=== PATIENT | female | born 1975 | race Caucasian/White ===

== ENCOUNTER 2018-03-29 07:26 | Emergency (ER) | payer SELFPAY ==
[2018-03-29 07:26] VITALS: BP 132/85; PULSE 96; RESP 18; TEMP 36.6; O2SAT 99; BMI 26.6
--- NOTE | 2018-03-29 07:38 | ED.VISSUMM ---
- ER Visit Summary Date of Service: 03/29/18 Chief Complaint: Headache dizziness cough. History of Present Illness: The patient is a 42 F with 3 day history of cough, nonproductive. She has sinus tenderness, rhinorrhea and she has had some muscle aches. No shortness of breath or chest pain. No fever. Physical Examination: She has swollen beefy red nasal turbinates, bulging TMs bilaterally. She has postnasal drip. She has frontal sinus tenderness. Her lungs are clear, abdomen is soft and nontender no rash normal exam otherwise. Emergency Department Course and Treatment: Patient will be treated for sinusitis with azithromycin. She is told that if she worsens, gets shortness of breath or any symptoms she needs to return. Impression: Sinusitis Sinus headache This note was generated with [employer] dictation software. It may contain incorrect words, spelling, and punctuation that were not noted in review of the chart prior to signing ED Disposition - Plan for ED Patient: Disposition: Home or Assisted Living Chief Complaint: General Illness Instructions: Sinus Headaches Prescriptions: Azithromycin [Zithromax] 250 mg PO DAILY 5 Days #6 tab Referrals: Ashleigh Watson [Primary Care Provider] - 3-5 Days
--- NOTE | 2018-03-29 07:50 | ED.DEP ---
ED Disposition - Plan for ED Patient: Disposition: Home or Assisted Living Chief Complaint: General Illness Instructions: Sinus Headaches Prescriptions: Azithromycin [Zithromax] 250 mg PO DAILY 5 Days #6 tab Referrals: Ashleigh Watson [Primary Care Provider] - 3-5 Days
== END 2018-03-29 08:06 | disposition home or self-care (01) ==
PROVIDERS: Emergency Provider Emergency Medicine; Family Provider Nurse Practitioner; PCP Nurse Practitioner
DX: J32.9 Chronic sinusitis, unspecified (principal); Z79.899 Other long term (current) drug therapy
CPT/HCPCS: 99282

== ENCOUNTER → 2018-08-01 13:02 | Outpatient (CLI) | payer SELFPAY ==
--- NOTE | 2018-08-01 11:30 | CER_PTH ---
PATIENT: KAREY HUSSEIN LOC: [facility] U#:[id number] AGE/SX: 49/F ROOM: RE08/01/[address]: Dr. Bala Amaya MD : 1975 BED: DIS: SPEC #: [id number] RECD: 08/01/18 16:02 STATUS: ANNA JUANITO #: [id number] KAREN: 08/01/18 11:[address]: Bala Amaya DEPT: SURGICAL PATHOLOGY RECD BY: Eric Javier ENTERED: 08/02/18 08:00 SP TYPE: CERV OTHR DR: Ashleigh Watson, HUMAN RESOURCES COMPLIANCE MANAGER-C Tissues: Uterine cervix, NOS Procedures: Surgery Specimen Level IV HEADER OPERATION: Cervical polyp removal PRE-OP DIAGNOSIS: N84.1 TISSUE SUBMITTED: Cervical polyp MICROSCOPIC DIAGNOSIS Cervical polyp: Inflamed mixed benign ecto- and endocervical polyp. SJ:sidney 08/05/18 MICROSCOPIC DESCRIPTION Slides are reviewed. GROSS DESCRIPTION Received in fixative is one container labeled with the patient's name and designated cervical polyp. The specimen consists of polypoid fragment of pink, congested soft tissue measuring 2.5 x 0.5 x 0.2 cm mixed with mucoid tissue. The entire specimen is submitted in one cassette. / SJ:sidney 08/02/18 TC:5 CPT: 52476
[2018-08-07 14:44] LABS: HPV Reflexed? NOT INDICATED
--- OUTSIDE RECORDS SUMMARY | 2018-09-26 16:55 | XMS RPT_ITS ---
:1975 Author Organization [facility] Care Team Providers Name Role Phone Ashleigh Watson Primary Care Unavailable Rafiq Verduzco Attending Unavailable Bala Amaya Attending Unavailable Ashleigh Watson [facility] Unavailable PROBLEMS PROBLEMS No Problem Records FoundPROCEDURES PROCEDURES No Procedure Records FoundRESULTS RESULTS CERVICAL Observed: 08/01/2018 Status: F Source: EDVONTE 11:30 AM [facility] REPOSITORY Patient: KAREY CARR : 1975 (42/F) Acct Num: [id number] Phys: Bala Amaya MD Unit Num: [id number] Loc: LABSPEC Specimen: [id number] Received: 08/01/18 - 160 Spec Type: CERV TISSUES 1 TISSUES: Uterine cervix, NOS GROSS DESCRIPTION Received in fixative is one container labeled with the patient's name and designated cervical polyp. The specimen consists of polypoid fragment of pink , congested soft tissue measuring 2.5 x 0.5 x 0.2 cm mixed with mucoid tissue. The entire specimen is submitted in one cassette. / Parminder 08/02/18 TC:5 CPT: 74140 HEADER OPERATION: Cervical polyp removal PRE-OP DIAGNOSIS: N84.1 TISSUE SUBMITTED: Cervical polyp MICROSCOPIC DESCRIPTION Slides are reviewed. MICROSCOPIC DIAGNOSIS Cervical polyp: Inflamed mixed benign ecto- and endocervical polyp. RODRIGUEZ:sidney 08/05/18 Signed Vito Crooks 08/05/18 <signature on file> Performed By: #### PCER #### [facility] [address], [address] PAP IG W/REFLEX HR Collected: 08/01/2018 Status: F Source: [place] HPV APTIMA 11:30 AM [facility] REPOSITORY Order Comment: CYTOLOGY INFORMATION: - CLINICAL INFORMATION: - DATE LMP/MENOPAUSE: 07/23/18 LMP - COLLECTION VIAL: Thin Prep Vial - GUNSTOCK REPAIRER SOURCE: CERVICAL/ENDOCERVICAL - COLLECTION TECHNIQUE: BRUSH/SPATULA Specimen Comment: [id number] Specimen Comment: Source.............Cervix;Endocervix Specimen Comment: LMP / Prev Treat...PIV=[id number] Specimen Comment: No. of containers..01 ThinPrep Vial TYPE CODE TESTS RESULT OUT OF RANGE REFERENCE UNITS LAB L7400.0800 . Normal DIAGN Comment Result Comment: NEGATIVE FOR INTRAEPITHELIAL LESION AND MALIGNANCY. LAB L7400.0900 . Normal ADEQ Comment Result Comment: Satisfactory for evaluation. Endocervical and/or squamous metaplastic cells (endocervical component) are present. LAB L7400.1400 . Normal PERFORM Comment Result Comment: Jayson Jacob, Dust Collector Treater (ASCP) LAB L7400.2575 . Normal TEST METHOD Comment Result Comment: This liquid based ThinPrep(R) pap test was screened with the use of an image guided system. LAB L7400.2600 . Normal . COMM LAB L7400.2700 . Normal PAPSMR Comment Result Comment: The Pap smear is a screening test designed to aid in the detection of premalignant and malignant conditions of the uterine cervix. It is not a diagnostic procedure and should not be used as the sole means of detecting cervical cancer. Both false-positive and false-negative reports do occur. LAB L7400.2800 . Normal HPV RFLX Comment Result Comment: The HPV DNA reflex criteria were not met with this specimen result therefore, no HPV testing was performed. Performed at: [address], [place] [id number] Aircraft Ordnance Technician: Yue Wood MD, Phone: [phone] Performed By: #### L7400.0357 #### [facility] (refer to report for specific site) refer to report for address and phone number DISCHARGE INSTRUCTION Observed: 03/29/2018 Status: F Source: [place] 7:50 AM [facility] REPOSITORY [facility] Medical Records Department [address] [place] [address] Discharge Instruction 03/29/18 0750 MR#: [id number] Acct: [id number] Name: KAREY CARR Rep #: [id number] : 1975 42 From: Rafiq Verduzco MD PCP: Ashleigh Watson NP Status: REG ER ED Disposition - Plan for ED Patient: Disposition: Home or Assisted Living Chief Complaint: General Illness Instructions: Sinus Headaches Prescriptions: Azithromycin [Zithromax] 250 mg PO DAILY 5 Days #6 tab Referrals: Ashleigh Watson [Primary Care Provider] - 3-5 Days What to do if you have Problems For any increased pain, shortness of breath, bleeding, nausea or vomiting, chest pain, or any unexpected problems, contact your Primary Care Provider. Call [facility] ([phone]) or report to the closest Emergency Room. Call 911 if necessary. 03/29/18749 <Electronically signed by Rafiq Verduzco MD> Date Rafiq Verduzco MD Cosigner Signature (If Indicated): Date CC: Ashleigh Watson NP EMERGENCY DEPARTMENT Observed: 03/29/2018 Status: F Source: [place] SUMMARY 7:43 AM [facility] Medical Records Department [address] [place] [address] Emergency Department Summary 03/29/18 0738 MR#: [id number] Acct: [id number] Name: KAREY CARR Rep #: [id number] : 1975 42 From: Rafiq Verduzco MD PCP: Ashleigh Watson NP Status: PRE ER - ER Visit Summary Date of Service: 03/29/18 Chief Complaint: Headache dizziness cough. History of Present Illness: The patient is a 42 F with 3 day history of cough, nonproductive. She has sinus tenderness, rhinorrhea and she has had some muscle aches. No shortness of breath or chest pain. No fever. Physical Examination: She has swollen beefy red nasal turbinates, bulging TMs bilaterally. She has postnasal drip. She has frontal sinus tenderness. Her lungs are clear, abdomen is soft and nontender no rash normal exam otherwise. Emergency Department Course and Treatment: Patient will be treated for sinusitis with azithromycin. She is told that if she worsens, gets shortness of breath or any symptoms she needs to return. Impression: Sinusitis Sinus headache This note was generated with [employer] dictation software. It may contain incorrect words, spelling, and punctuation that were not noted in review of the chart prior to signing ED Disposition - Plan for ED Patient: Disposition: Home or Assisted Living Chief Complaint: General Illness Instructions: Sinus Headaches Prescriptions: Azithromycin [Zithromax] 250 mg PO DAILY 5 Days #6 tab Referrals: Ashleigh Watson [Primary Care Provider] - 3-5 Days What to do if you have Problems For any increased pain, shortness of breath, bleeding, nausea or vomiting, chest pain, or any unexpected problems, contact your Primary Care Provider. Call [facility] ([phone]) or report to the closest Emergency Room. Call 911 if necessary. 03/29/18 0743 <Electronically signed by Rafiq Verduzco MD> Date Rafiq Verduzco MD Cosigner Signature (If Indicated): Date CC: Ashleigh Watson NP ALLERGIES ALLERGIES DATE TYPE / CODE NAME / CODE REACTION SEVERITY SOURCE 03/29/2018 Drug hydromorphone Itching Unknown [place] Allergy/416 HCl/[id number](NO [facility] 985393([facility]) [facility] ED CT) Repository 03/29/2018 Drug amoxicillin Nausea/Vom/[place] Unknown [place] Allergy/416 trihydrate/[id number] [facility] 103009([facility] 07(RXNORM) [facility] ED CT) Repository 03/29/2018 Drug potassium Nausea/Vom/[place] Unknown [place] Allergy/416 clavulanate/[id number] [facility] 223053([facility] 809(RXNO) [facility] ED CT) Repository 03/29/2018 Drug morphine/[id number] Nausea/Vom/[place] Unknown [place] Allergy/416 (RXNORM) [facility] 578383([facility] ED CT) Repository 03/29/2018 Drug levofloxacin/Y73672 Nausea/Vom/[place] Unknown [place] Allergy/416 6299(RXNORM) [facility] 062283([facility] ED CT) Repository ENCOUNTERS ENCOUNTERS ADMIT/DISCHARGE ACCOUNT ADMITTING ENCOUNTER LOCATION SOURCE NUMBER CLASS 08/01/2018 [id number] Ambulatory [place] [address] [facility] ing:LABSPEC Repository 03/29/2018/ [id number] Emergency [place] [address] [facility] ing:ED Repository PAYERS PAYERS ENCOUNTER GUARANTOR PAYER SUBSCRIBER SOURCE 08/01/2018 Dahlia S Criopw667 Primary NOT GIVENUNK [place] Insurance:SELF PAY [place] [address]Tel: [phone] Number: Effective Repository [phone] () Date:2018-08-01 03/29/2018 Dahlia Carr657 Primary NOT GIVENUNK [place] Insurance:SELF PAY [place] [address]Tel: [phone] Number: Effective Repository [phone] () Date:2018-03-29
== END ==
PROVIDERS: Family Provider Nurse Practitioner; PCP Nurse Practitioner; Visit Provider Obstetrics & Gynecology
DX: Z12.4 Encounter for screening for malignant neoplasm of cervix (principal); N84.1 Polyp of cervix uteri
CPT/HCPCS: 87624; 88175; 88305; G0145

== ENCOUNTER → 2024-02-07 | Outpatient (CLI) | payer BC, SELFPAY ==
--- NOTE | 2024-02-07 11:26 | MRI_ITS ---
EXAM: MR PELVIS WITHOUT AND WITH INTRAVENOUS CONTRAST CLINICAL INDICATION: URETHAL DIVERTICULI -- URETHRA TECHNIQUE: Multiplanar and multisequence MR images of the pelvis without and with intravenous contrast. CONTRAST: 15cc Clariscan COMPARISON: No relevant prior studies available. FINDINGS: INTRAPERITONEAL SPACE: Physiological amount of free fluid noted within the pelvis. BLADDER: Urinary bladder is normal in appearance. Urethra is normal. No evidence of urethral diverticulum. OVARIES: Right ovary measures 3.0 x 1.2 cm. 15 and 13 mm right ovarian follicles are present. 18 x 10 mm left ovary containing a 5 mm follicle. UTERUS/CERVIX: Uterus measures 9.5 x 4.9 x 3.4 cm. Endometrial thickness is 6 mm. 16mm right-sided uterine fibroid. Small nabothian cysts are present. Fluid distends the endocervical canal to AP dimension of 6 mm. BONES/JOINTS: Normal. SOFT TISSUES: Normal. No pelvic wall hernia. LYMPH NODES: Normal. No enlarged lymph nodes. MRI/Pelvis W/WO Contrast IMPRESSION: 1. Normal urethra. 2. 16mm uterine fibroid. Electronically Signed: Angel Graham MD at 13:41 EDT ,
== END | disposition home or self-care (01) ==
LOC: MRI 11:18
PROVIDERS: PCP Nurse Practitioner; Referring Provider Urology; Visit Provider Urology
DX: N36.1 Urethral diverticulum (principal)
CPT/HCPCS: 72197; A9575